=== PATIENT | female | born 1960 | race Native Hawaiian/Other Pacific Islander ===

== ENCOUNTER 2019-03-23 07:18 | Outpatient (CLI) | payer OTHER | END 2019-03-23 07:19 | disposition home or self-care (01) | LOC: C.MAMMO 07:18 | DX: I10 Essential (primary) hypertension (principal); E11.9 Type 2 diabetes mellitus without complications; H10.13 Acute atopic conjunctivitis, bilateral; J30.9 Allergic rhinitis, unspecified; E83.52 Hypercalcemia ==